=== PATIENT | female | born 1960 | race Caucasian/White ===

== ENCOUNTER 2024-03-21 09:31 | Day surgery (SDC) | payer MEDICARE, MEDICAID ==
[2024-03-21] MEDS ORDERED: Lidocaine 1% PF 5 ML VIAL ONE (09:38)
[2024-03-21] MEDS ORDERED: Sodium Bicarbonate 2.5 MEQ/5 ML SDV ONE (09:38)
[2024-03-21 10:08] VITALS: BP 196/83; TEMP 97.9
[2024-03-21] MEDS ORDERED: Iopamidol-M 200 41% 10 ML VIAL FS ONE (11:40)
== END 2024-03-21 12:30 | disposition home or self-care (01) ==
LOC: CSHRAD 09:31
PROVIDERS: ATTEND Nurse Practitioner Family
PROC: B02BY0Z Computerized Tomography (CT Scan) of Spinal Cord using Other Contrast, Unenhanced and Enhanced (ICD-10-PCS; principal; 2024-03-21)
DX: M48.062 Spinal stenosis, lumbar region with neurogenic claudication (principal); Z88.5 Allergy status to narcotic agent; Z88.2 Allergy status to sulfonamides
CPT/HCPCS: 62284; 72132; 77003; Q9966